=== PATIENT | male | born 1955 | race Two or more races ===

== ENCOUNTER → 2016-12-28 | Day surgery (SDC) | payer BC ==
[~2016-12-28] VITALS: Ht 167.6 cm; Wt 77.6 kg
[~2016-12-28] MED LIST: CRESTOR10 M2 ORAL; LR 1000ml ONE; NIACIN500 M1 PO; PROSCAR5 MG ORAL; Propofol 10mg/ml 20ml IV ONE; VASCEPA0.5 GM PO; VIT D3 PO
[2016-12-28 08:29] VITALS: BP 114/84
--- NOTE | 2016-12-28 08:34 | Short Stay Surgery H&P ---
History of Present Illness History of Present Illness Chief Complaint screening colonoscopy HPI Gil Ha is a 61 year old male who was admitted on for Colon Screening Patient History Allergies: Coded Allergies: No Known Allergies (Unverified , 12/28/16) PAST MEDICAL HISTORY: Past Surgeries: Social History: Review of Systems Cardiovascular: Reports: no symptoms Respiratory: Reports: no symptoms Skeletal: Reports: no symptoms Gastrointestinal: Reports: no symptoms Genitourinary: Reports: no symptoms Neurologic: Reports: no symptoms Endocrine: Reports: no symptoms Hematologic: Reports: no symptoms Physical Exam Vital Signs Last Vital Signs Date Time Temp Pulse Resp B/P Pulse Ox O2 Delivery O2 Flow Rate FiO2 12/28/16 08:29 97.2 62 18 114/84 100 Room Air Skin: normal HENT: normal Heart: normal Lungs: normal Abdomen: normal Extremities: normal Genitourinary: normal Plan Plan of Care Screening colonoscopy Preop Interventions None Summary of Findings See the reports Final Diagnosis: Attestation Are the patient's medical conditions optimized for surgery? Attestation Response: yes PATY ALATORRE Dec 28, 2016 08:34
--- NOTE | 2016-12-28 08:35 | Pre-Procedure Note/Attestation ---
Pre-Procedure Note/Attestation Complete Prior to Procedure Planned Procedure: left Procedure Narrative: Endoscopic exam of the coloon for screening. Indications for Procedure Pre-Operative Diagnosis: R/O colon polyp Attestation I attest that I discussed the nature of the procedure; its benefits; risks and complications; and alternatives (and the risks and benefits of such alternatives ), prior to the procedure, with the patient (or the patient's legal sales service representative). I attest that, if there was a reasonable possibility of needing a blood transfusion, the patient (or the patient's legal sales service representative) was given the [facility] standardized written summary, pursuant to the Don Halbur Blood Safety Act ([place] Health and Safety Code # 1645, as amended). I attest that I re-evaluated the patient just prior to the surgery and that there has been no change in the patient's H&P, except as documented below: CELI,SAID Dec 28, 2016 08:35
--- NOTE | 2016-12-28 08:58 | Anethesia Preoperative Eval ---
Anesthesia Pre-op PMH/ROS General Date of Evaluation: Dec 28, 2016 Time of Evaluation: 08:45 Anesthesiologist: marine ASA Score: ASA 2 Mallampati Score Class I : Soft palate, uvula, fauces, pillars visible Class II: Soft palate, uvula, fauces visible Class III: Soft palate, base of uvula visible Class IV: Only hard plate visible Mallampati Classification: Class II Surgeon: jazzy Diagnosis: screening colonoscopy Surgical Procedure: screening colonoscopy Anesthesia History: none Family History: no anesthesia problems Allergies: Coded Allergies: No Known Allergies (Unverified , 12/28/16) Medications: see eMAR Past Medical History Cardiovascular: Denies: CAD, HTN, MT, arrhythmia, other, valve dz Pulmonary: Denies: COPD, HAIM, asthma, other Gastrointestinal/Genitourinary: Denies: CRI, ESRD, GERD, other Neurologic/Psychiatric: Denies: CVA, TIA, dementia, depression/anxiety, other Endocrine: Denies: DM, hypothyroidism, other, steroids HEENT: Denies: [place] (L), [place] (R), cataract (L), cataract (R), glaucoma, other Hematology/Immune: Denies: DVT, anemia, bleeding disorder, other Musculoskeletal/Integumentary: Denies: DDD, DJD, OA, RA, edema, other PMH Narrative: hyperlipidemia PSxH Narrative: denies Anesthesia Pre-op Phys. Exam Physician Exam Last Vital Signs Date Time Temp Pulse Resp B/P Pulse Ox O2 Delivery O2 Flow Rate FiO2 12/28/16 08:29 97.2 62 18 114/84 100 Room Air Constitutional: NAD Neurologic: CN 2-12 intact Cardiovascular: RRR Respiratory: CTA Gastrointestinal: S/NT/ND Airway Exam Mallampati Score: Class II MO: full ROM: full Teeth: intact Dentures: no lower, no upper QUIN FRANCO D.O. Dec 28, 2016 08:58
--- NOTE | 2016-12-28 09:01 | Endoscopy Procedure Note ---
Endoscopy Procedure Note Indication for Procedure: Screening colon Procedures Performed: colonoscopy - Diverticulosis of the left colon otherwise normal colonoscopy. Specimen: none Pt Tolerated Procedure Well: Yes Estimated Blood Loss: none Anesthesiologist: Dr. Echols Anesthesia: moderate sedation Medication Given: see anesthesia record Implant(s) used?: No 50 yrs or older w/o bx or poly: Yes 10yrs. F/U not recommended: Yes Med reason:<3 yrs.: System Reason:<3 yrs.: Last colonoscopy >= to 3yrs: Yes PATY ALATORRE Dec 28, 2016 09:01
--- NOTE | 2016-12-28 09:02 | Discharge Instructions ---
Discharge Instructions Discharge Instructions Follow up with: Visit the doctor after two weeks in the office For Congestive Heart Failure Reminder Report to your physician any weight gain of 5 pounds or more in one week. PATY ALATORRE Dec 28, 2016 09:02
--- NOTE | 2016-12-28 09:04 | Immediate Post-Op Evaluation ---
Immediate Post-Op Evalulation Immediate Post-Op Evalulation Procedure: screening colonoscopy Date of Evaluation: Dec 28, 2016 Time of Evaluation: 09:03 IV Fluids: 300ml Blood Products: none Estimated Blood Loss: none Urinary Output: due to void Blood Pressure Systolic: 150 Blood Pressure Diastolic: 88 Pulse Rate: 60 Respiratory Rate: 16 O2 Sat by Pulse Oximetry: 99 Temperature (Fahrenheit): 97 Pain Score (1-10): 0 Nausea: No Vomiting: No Complications none Patient Status: awake, reacts Hydration Status: adequate Drug: n/a QUIN FRANCO D.O. Dec 28, 2016 09:04
--- NOTE | 2016-12-28 09:04 | Discharge Instructions ---
Discharge Instructions Discharge Instructions Follow up with: See the doctor in office after 2 weeks. For Congestive Heart Failure Reminder Report to your physician any weight gain of 5 pounds or more in one week. PATY ALATORRE Dec 28, 2016 09:04
[2016-12-28 09:05] VITALS: BP 141/86
[2016-12-28 09:10] VITALS: BP 138/85
--- NOTE | 2016-12-28 09:14 | 48 Hour Post Anesthesia Eval ---
Post Anesthesia Evaluation Procedure: screening colonoscopy Date of Evaluation: Dec 28, 2016 Time of Evaluation: 09:08 Blood Pressure Systolic: 122 0: 88 Pulse Rate: 66 Respiratory Rate: 16 Temperature (Fahrenheit): 97.3 O2 Sat by Pulse Oximetry: 99 Airway: patent Nausea: No Pain Intensity: 0 Hydration Status: adequate Cardiopulmonary Status: stable Mental Status/LOC: patient returned to baseline Follow-up Care/Observations: as per surgeon Post-Anesthesia Complications: none QUIN FRANCO D.O. Dec 28, 2016 09:14
[2016-12-28 09:15] VITALS: BP 131/83
[2016-12-28 09:45] VITALS: BP 125/79
[2016-12-28 10:15] VITALS: BP 120/84
--- NOTE | 2016-12-28 17:17 | Operative Note - Dictated ---
DATE OF OPERATION: 12/28/2016 PROCEDURE: Total screening colonoscopy. PREOPERATIVE DIAGNOSIS: Screening colonoscopy. POSTOPERATIVE DIAGNOSIS: Mild left colonic diverticulosis, otherwise, complete normal study up to the base of the cecum as examined in total colonoscopy. MEDICATION USED: Per Dr. Echols, anesthesiologist. INSTRUMENT: GIF Olympus videocolonoscope. DESCRIPTION OF PROCEDURE: The patient after arriving in the endoscopy unit, was told about risks and benefits of the procedure, which he accepted and signed the informed consent. He was then put on the left lateral decubitus position. After adequate IV sedation, scope was gently passed through the anal area, which revealed no abnormality including hemorrhoids, tumors, polyps, etc. The retroflexion maneuver was applied in the rectum also, which revealed normal findings. At this time, the scope was passed through somewhat redundant left colon revealing diverticular lesions, however, there was no any evidence of inflammatory process, ulceration, tumor, polyps, colitis etc. The scope was gradually passed toward the splenic flexure, from there into normal transverse and ascending colon all the way to the base of the cecum. All these areas remained to be normal without any abnormality. Finally, the scope was gradually pulled out within 6 minutes and revealing no other abnormalities, procedure was terminated. The patient tolerated the procedure well. The colon cleanup was adequate. Said Tristan Bean DR: SANDRA JOB#: [id number] CC:
== END | disposition home or self-care (01) ==
LOC: GAS 08:00
DX: Z12.11 Encounter for screening for malignant neoplasm of colon (principal); K57.30 Diverticulosis of large intestine without perforation or abscess without bleeding; E78.5 Hyperlipidemia, unspecified
CPT/HCPCS: 45378; J2704; J7120; 94003; 94150